=== PATIENT | male | born 1975 | race Two or more races ===

== ENCOUNTER 2018-04-16 12:37 | Emergency (ER) | payer SELFPAY, MEDICAID ==
[2018-04-16] MEDS: KETOROLAC 60 MG INJ IM (14:24)
[2018-04-16] MEDS: DEXAMETHASONE 10 MG/ML 1 ML INJ PO (14:25)
== END 2018-04-16 15:23 | disposition home or self-care (01) ==
LOC: FTE 12:37
DX: M54.5 Low back pain (principal); E11.9 Type 2 diabetes mellitus without complications
CPT/HCPCS: 72100; 73510; 96372; 99284-25